=== PATIENT | male | born 1955 | race Caucasian/White ===

== ENCOUNTER 2016-11-19 05:10 | Emergency (ER) | payer OTHER ==
[~2016-11-19] VITALS: Ht 190.5 cm; Wt 164.8 kg
[2016-11-19] MEDS ORDERED: PROPARACAINE OPHTH 0.5%, 15ML EACHEYE ONE (05:30)
[2016-11-19] MEDS ORDERED: FLUORESCEIN OPHTHALMIC 1 MG STRIP EACHEYE ONE (05:30)
[2016-11-19] MEDS ORDERED: PROPARACAINE OPHTH 0.5%, 15ML ONE (05:31)
[2016-11-19] MEDS ORDERED: FLUORESCEIN OPHTHALMIC 1 MG STRIP ONE (05:31)
[2016-11-19 05:59] VITALS: BP 163/93
[2016-11-19] MEDS ORDERED: PLEASE ENTER ALLERGIES MC SCH ×2 (06:00)
== END 2016-11-19 07:26 | disposition home or self-care (01) ==
LOC: ED 06:44
DX: H10.211 Acute toxic conjunctivitis, right eye (principal); H10.212 Acute toxic conjunctivitis, left eye; Z77.098 Contact with and (suspected) exposure to other hazardous, chiefly nonmedicinal, chemicals
CPT/HCPCS: 99283